=== PATIENT | female | born 1995 | race Caucasian/White ===

== ENCOUNTER 2020-07-07 06:17 | Observation (INO) | payer MEDICAID ==
[~2020-07-07] VITALS: Ht 170.2 cm; Wt 80.7 kg
[2020-07-07 07:50] LABS: CLARITY URINE CLEAR (CLEAR); COLOR URINE YELLOW (YELLOW); KETONES URINE NEGATIVE (NEGATIVE); LEUKOCYTE ESTERASE URINE TRACE (NEGATIVE); NITRITE URINE NEGATIVE (NEGATIVE); OCCULT BLOOD URINE NEGATIVE (NEGATIVE); PH URINE 6.5 (4.5-8.0); PROTEIN URINE NEGATIVE (NEGATIVE); UROBILINOGEN URINE 0.2 E.U./dL (0.2-1.0)
[2020-07-07] MEDS ORDERED: LACTATED RINGERS 1,000 ML IV SCH (08:00)
[2020-07-07] MEDS ORDERED: ACETAMINOPHEN 500MG TABLET PO ONE (08:00)
== END 2020-07-07 09:00 | disposition home or self-care (01) ==
LOC: 8 EST LDRP 06:17
PROVIDERS: ADMIT Obstetrics & Gynecology; ATTEND Obstetrics & Gynecology
DX: O26.893 Other specified pregnancy related conditions, third trimester (principal); O99.891 Other specified diseases and conditions complicating pregnancy; R10.9 Unspecified abdominal pain; R35.0 Frequency of micturition; M54.5 Low back pain; Z3A.32 32 weeks gestation of pregnancy
CPT/HCPCS: 59025; 81003; 82731; G0378; 99281

== ENCOUNTER 2020-08-10 16:27 | Observation (INO) | payer MEDICAID ==
[~2020-08-10] VITALS: Ht 170.2 cm; Wt 81.6 kg
[2020-08-10 17:51] LABS: CLARITY URINE CLOUDY (CLEAR); COLOR URINE YELLOW (YELLOW); KETONES URINE NEGATIVE (NEGATIVE); LEUKOCYTE ESTERASE URINE 3+ (NEGATIVE); NITRITE URINE NEGATIVE (NEGATIVE); OCCULT BLOOD URINE NEGATIVE (NEGATIVE); PH URINE 6.5 (4.5-8.0); PROTEIN URINE TRACE (NEGATIVE); SPECIFIC GRAVITY URINE 1.026 (1.005-1.030)
[2020-08-10 21:18] LABS: CHLORIDE 105 mEq/L (98-107)
== END 2020-08-10 22:28 | disposition home or self-care (01) ==
LOC: 8 EST LDRP 16:27
PROVIDERS: ADMIT Obstetrics & Gynecology; ATTEND Obstetrics & Gynecology
DX: O26.893 Other specified pregnancy related conditions, third trimester (principal); R10.30 Lower abdominal pain, unspecified; Z3A.37 37 weeks gestation of pregnancy
CPT/HCPCS: 36415; 59025; 76805; 76817; 76818; 80053; 81003; G0378; 99281

== ENCOUNTER 2020-08-26 07:45 | Inpatient (IN) | payer MEDICAID ==
[~2020-08-26] VITALS: Ht 167.6 cm; Wt 83.5 kg
[2020-08-26] MEDS ORDERED: RHO(D) IMMUNE GLOBULIN 300 MCG/SYR IM ONE (13:45)
[2020-08-26] MEDS ORDERED: LIDOCAINE HCL 1% 20ML VIAL (Pyxis) INJ INFIL SCH (13:45)
[2020-08-26] MEDS: LACTATED RINGERS 1,000 ML IV SCH ×4 (14:37→21:16)
[2020-08-26] MEDS: DEXT 5%/LR + PITOCIN 20UNITS/L 1,000 ML IV SCH (14:50)
[2020-08-26 14:51] LABS: CLARITY URINE TURBID (CLEAR); COLOR URINE DARK YELLOW (YELLOW); KETONES URINE NEGATIVE (NEGATIVE); LEUKOCYTE ESTERASE URINE 2+ (NEGATIVE); NITRITE URINE NEGATIVE (NEGATIVE); OCCULT BLOOD URINE NEGATIVE (NEGATIVE); PROTEIN URINE 1+ (NEGATIVE); SPECIFIC GRAVITY URINE 1.032 (1.005-1.030)
[2020-08-26 15:00] LABS: BASOPHILS % 0.4 % (0.0-2.0); EOSINOPHILS % 0.3 % (0.0-5.0); HEMATOCRIT. 34.5 % (36.0-48.0); HEMOGLOBIN. 11.2 g/dL (12.0-16.0); LYMPHOCYTES % 18.6 % (20.0-50.0); MEAN CORPUSCULAR HEMOGLOBIN 26.7 pg (28.0-32.0); MEAN CORPUSCULAR VOLUME 82.8 fL (81.0-99.0); MEAN PLATELET VOLUME 9.1 fl (7.4-10.4); MONOCYTES % 7.8 % (2.0-8.0); NEUTROPHILS % 72.9 % (40.0-76.0); PLATELET 173 x1000/uL (130-400); RED BLOOD CELL COUNT 4.17 mill/uL (4.2-5.4); RED CELL DISTRIBUTION WIDTH 18.9 % (11.6-14.6)
[2020-08-26 15:01] LABS: PARTIAL THROMBOPLASTIN TIME 26.5 sec (23.4-31.0); PROTHROMBIN TIME 10.1 sec (9.6-11.0)
[2020-08-26 15:34] LABS: HEPATITIS B SURFACE ANTIGEN NEGATIVE
[2020-08-26 15:55] LABS: *BENZODIAZEPINES SCREEN URINE NEGATIVE (NEGATIVE); *COCAINE SCREEN URINE NEGATIVE (NEGATIVE); METHADONE URINE SCREEN NEGATIVE (NEGATIVE)
[2020-08-26 15:56] LABS: *AMPHETAMINES SCREEN URINE NEGATIVE (NEGATIVE); *BARBITURATES SCREEN URINE NEGATIVE (NEGATIVE); CANNABINOID URINE SCREEN NEGATIVE (NEGATIVE); OPIATES URINE SCREEN NEGATIVE (NEGATIVE); PHENCYCLIDINE URINE SCREEN NEGATIVE (NEGATIVE)
[2020-08-26] MEDS ORDERED: BUTORPHANOL TARTRATE 2 MG/ML VIAL IV PRN (19:30)
[2020-08-26] MEDS ORDERED: ROPIVACAINE HCL/PF EPIDURAL 200 ML EPI SCH (20:00)
[2020-08-26] MEDS ORDERED: FENTANYL CITRATE/PF 50MCG/ML 2ML VIAL ONE ×2 (20:06→20:35)
[2020-08-26] MEDS ORDERED: BUPIVACAINE HCL/PF 0.25% (2.5MG/ML) 10ML ONE ×2 (20:07→20:35)
[2020-08-27] MEDS: DEXT 5%/LR + PITOCIN 20UNITS/L 1,000 ML IV SCH (03:09)
[2020-08-27] MEDS ORDERED: HEMORRHOIDAL SUPP PR PRN (03:15)
[2020-08-27] MEDS ORDERED: ACETAMINOPHEN WITH CODEINE 300/30MG TABLET PO PRN (03:15)
[2020-08-27] MEDS ORDERED: IBUPROFEN 800MG TABLET PO PRN (03:15)
[2020-08-27] MEDS ORDERED: BENZOCAINE/LANOLIN/ALOE VERA SPRAY TOP PRN (03:15)
[2020-08-27] MEDS ORDERED: GLYCERIN/WITCH HAZEL LEAF MEDICATED PAD TOP PRN (03:15)
[2020-08-27] MEDS ORDERED: DEXT 5%/LR + PITOCIN 20UNITS/L 1,000 ML IV SCH (03:15)
[2020-08-27] MEDS ORDERED: IBUPROFEN 400MG TABLET PO PRN (03:15)
[2020-08-27] MEDS ORDERED: BISACODYL 10MG SUPP PR PRN (03:15)
[2020-08-27] MEDS ORDERED: ONDANSETRON HCL 4MG/2ML INJ IV PRN (03:45)
[2020-08-27 05:15] VITALS: BP 106/58
[2020-08-27 05:50] VITALS: BP 108/61
[2020-08-27] MEDS ORDERED: MAGNESIUM/ALUMINUM HYDROXIDE/SIMETHICONE 30ML UDC PO SCH (07:30)
[2020-08-27] MEDS ORDERED: SIMETHICONE 80MG TABLET CHEW PO SCH (08:00)
[2020-08-27] MEDS ORDERED: PRENATAL VIT/FE FUMARATE/FA TABLET PO SCH (09:00)
[2020-08-27 16:23] VITALS: BP 112/65
[2020-08-27 19:30] VITALS: BP 106/63
[2020-08-27] MEDS ORDERED: DOCUSATE SODIUM 100MG CAPSULE PO SCH (21:00)
[2020-08-28 04:00] VITALS: BP 110/71
[2020-08-28] MEDS ORDERED: MEASLES,MUMPS&RUBELLA VACCINE 1 VIAL SUBCUT ONE (06:00)
[2020-08-28 06:44] LABS: BASOPHILS % 0.3 % (0.0-2.0); EOSINOPHILS % 0.7 % (0.0-5.0); HEMATOCRIT. 34.2 % (36.0-48.0); HEMOGLOBIN. 11.1 g/dL (12.0-16.0); LYMPHOCYTES % 23.2 % (20.0-50.0); MEAN CORPUSCULAR VOLUME 83.3 fL (81.0-99.0); MEAN PLATELET VOLUME 9.6 fl (7.4-10.4); MONOCYTES % 6.9 % (2.0-8.0); NEUTROPHILS % 68.9 % (40.0-76.0); PLATELET 166 x1000/uL (130-400); RED CELL DISTRIBUTION WIDTH 18.6 % (11.6-14.6)
[2020-08-28 07:30] VITALS: BP 105/74
[2020-08-28] MEDS ORDERED: FERROUS SULFATE 325MG TABLET PO SCH (07:30)
== END 2020-08-28 12:45 | disposition home or self-care (01) | DRG 560 ==
LOC: 8 EST LDRP 07:45 → OBSVTOIN 07:45 → 8EST 08-27 05:07
PROVIDERS: ADMIT Obstetrics & Gynecology; ATTEND Obstetrics & Gynecology
PROC: 10E0XZZ Delivery of Products of Conception, External Approach (ICD-10-PCS; principal; 2020-08-27)
PROC: 0KQM0ZZ Repair Perineum Muscle, Open Approach (ICD-10-PCS; 2020-08-27)
PROC: 3E0R3BZ Introduction of Anesthetic Agent into Spinal Canal, Percutaneous Approach (ICD-10-PCS; 2020-08-27)
PROC: 00HU33Z Insertion of Infusion Device into Spinal Canal, Percutaneous Approach (ICD-10-PCS; 2020-08-27)
DX: O70.1 Second degree perineal laceration during delivery (principal); Z3A.39 39 weeks gestation of pregnancy; Z37.0 Single live birth
CPT/HCPCS: 36415; 76805; 76818; 80305; 81003; 82947; 82962; 85025; 86592; 86703; 86762; 86850; 86900; 87340; 90707; 99281; J0595; J2405; J2590; J2795; J3010; J3490; J7120; A4315